=== PATIENT | male | born 2000 | race Caucasian/White ===

== ENCOUNTER → 2021-03-26 | Outpatient (CLI) | payer MEDICAID ==
[~2021-03-26] MED LIST: ARIP5TAB13 PO; FLUO40CA9 PO; IBUP200T44 PO
--- NOTE | 2021-03-26 09:49 | RAD ---
LEFT ANKLE AP, LATERAL, OBLIQUE Clinical Indication: Reason: ROLLED ANKLE LAST NIGHT, LATERAL ANKLE PAIN AND SWELLING Comparison: None. Findings: There is no acute fracture or dislocation. Mineralization is normal. Joint spaces are maintained. The ankle mortise is intact. There is mild lateral ankle soft tissue swelling. IMPRESSION: No acute fracture. Electronically signed by: Jeancarlos Luong MD (03/26/2021 9:47 AM) [id number]
== END ==
LOC: RAD 08:53
PROVIDERS: ATTEND Physician Assistant
DX: M25.572 Pain in left ankle and joints of left foot (principal); M25.472 Effusion, left ankle
CPT/HCPCS: 73610